=== PATIENT | male | born 1965 | race Caucasian/White ===

== ENCOUNTER 2018-12-08 18:09 | Emergency (ER) | payer OTHER ==
[~2018-12-08] VITALS: Ht 175.3 cm; Wt 74.8 kg
[~2018-12-08 18:09] MED LIST: NOHOMEMEDICATIONS; ULTRAM 50MG TAB50 MG PO; ZOFRAN4 MG PO
[2018-12-08 19:20] VITALS: BP 120/85
== END 2018-12-08 19:20 | disposition home or self-care (01) ==
LOC: ER 18:09
DX: M54.42 Lumbago with sciatica, left side (principal); F17.210 Nicotine dependence, cigarettes, uncomplicated